=== PATIENT | male | born 1970 | race Caucasian/White ===

== ENCOUNTER 2024-06-25 09:01 | Outpatient (CLI) | payer OTHER, SELFPAY ==
--- NOTE | 2024-06-25 09:15 | MR_ITS ---
[address] [address] Phone:?[phone] Fax:?[phone] Referring Physician Information: Jeronimo Bird M.D. [id number] [facility] [address] Phone:?[phone] Fax:?[phone] Patient:Cong Fernando D.O.B:?1970 Sex:?Male Phone:?[phone] [facility] MRN:?[id number] Exam Date:?06/25/2024 EXAM: MRI EXAMINATION OF THE RIGHT HIP CLINICAL INFORMATION: Male, 53 years old, with right hip pain. INDICATION: Evaluate hip pain. PRIOR SURGERY: None reported. PLAIN FILMS: Hip radiograph dated 01/17/2024. COMPARISONS: No prior MRIs available. TECHNICAL INFORMATION: Using a 1.5T MR scanner and a localizing surface coil: coronals: PD, T2 sagittals: PD, T2 oblique axials: PD straight axials: PDFS coronals: T1, STIR of pelvis and hips SEDATION: None CONTRAST: None FINDINGS: Hip joint: Moderate hip effusion. Moderate chondral thinning of the articular cartilage throughout the superior aspect of the joint (coronal PD series 4 image 16). This includes a focal area of near full-thickness chondral loss. No intra-articular bodies. Labrum: Intrasubstance degeneration and fraying of the anterosuperior labrum. No paralabral cyst. Proximal femur: Moderate marginal osteophytosis. No stress/occult fracture. No convincing femoral cam morphology. Acetabulum: Mild marginal osteophytosis. No stress/occult fracture or periacetabular ossicle. Version: Normal acetabular anteversion. Coverage: Right lateral center edge (CE) angle measures approximately 25? (normal 25?-39?), midline coronal series 4 image 15, corrected for pelvic obliquity. Ligamentum teres: Ligamentum teres is intact and unremarkable. Iliofemoral ligament: The iliofemoral ligament is intact without thickening. Pelvis osseous structures: Sacral ala and sacroiliac joints: No stress/insufficiency fractures or marrow edema/pathology. No demonstrable sacroiliitis. Pubic rami and pubic symphysis: No stress/insufficiency fractures or marrow edema/pathology. Normal alignment without hypertrophy or evidence of ongoing osteitis pubis. Myotendinous structures: Gluteus abductors: No convincing insertional tendinopathy or tear of gluteus minimus or medius. Adductors: No demonstrable tendinopathy or strain/tear. Hamstrings: Mild bilateral common hamstrings tendinopathy, without tear (coronal STIR series 2 images 25-27). Flexors: Intact iliopsoas and rectus femoris, without strain/tear. External rotators: Intact, without demonstrable ischiofemoral impingement. Gluteal aponeurotic fascia and IT band: Unremarkable. Bursae: No demonstrable trochanteric, iliopsoas, or iliopectineal bursitis. Intrapelvic contents: Free fluid: No free fluid seen within the pelvis. Pelvic viscera: No discrete intrapelvic mass is identified. Lymph nodes: No lymphadenopathy by MRI size criteria. Neurovascular structures: No discrete cyst, mass or other compression upon the portions visualized of sciatic or femoral nerves. Lumbar spine: The visualized portions of the lower lumbar spine are unremarkable. IMPRESSION: 1. Moderate osteoarthritis of the right hip joint with a moderate joint effusion. 2. Mild bilateral common hamstrings tendinopathy, without tear. 3. Intrasubstance degeneration and fraying of the anterosuperior labrum. No paralabral cyst. 4. No fracture or osseous stress reaction. 5. No myotendinous abnormality. BC Electronically signed on 06/25/2024 2:47:00 PM by Ramo Johnson M.D.
== END 2024-06-25 09:02 | disposition home or self-care (01) ==
PROVIDERS: Visit Provider Orthopaedic Surgery Sports Medicine
DX: M25.551 Pain in right hip (principal); M16.11 Unilateral primary osteoarthritis, right hip
CPT/HCPCS: 73721

== ENCOUNTER 2024-07-11 10:52 | Outpatient (CLI) | payer OTHER, SELFPAY ==
--- NOTE | 2024-07-11 11:15 | CRLHL7_ITS ---
For Patients: As a result of the Century Cures Act, medical imaging exams and procedure reports are released immediately into your electronic medical record. You may view this report before your referring provider. If you have questions, please contact your health care provider. Indication: Right hip pain Comparison: MRI 06/25/2024 Procedure : Informed consent was obtained. The site was marked. Time-out was performed. The skin of the right hip was cleansed with ChloraPrep. A sterile drape was placed. 8 cc of 1 percent lidocaine was administered for superficial anesthesia. Subsequently a 22 gauge spinal needle was introduced into the right hip joint under intermittent fluoroscopic guidance. Injection of 2 cc nonionic Omnipaque 240 contrast confirmed intra-articular location. Subsequently 7 cc 1 percent lidocaine and 2 cc 40 milligram/cc Depo-Medrol then injected into the right hip joint. The needle was removed and hemostasis achieved with direct pressure. A dressing was placed. The patient tolerated the procedure well without immediate complication. Total fluoroscopy time 14 seconds. Impression: Successful fluoroscopically guided right hip injection with 80 milligrams of Depo-Medrol. No fluid was present within the joint. Dictated by Josh Mullins MD @ 07/11/2024 12:21:10 PM (Electronically Signed)
== END 2024-07-11 10:53 | disposition home or self-care (01) ==
LOC: RAD 10:53
PROVIDERS: Visit Provider Orthopaedic Surgery Sports Medicine
DX: M25.551 Pain in right hip (principal)
CPT/HCPCS: 20610; 77002; Q9966

== ENCOUNTER 2025-01-14 13:21 | Outpatient (CLI) | payer OTHER, SELFPAY | END 2025-01-14 13:22 | disposition home or self-care (01) | PROVIDERS: PCP Family Medicine; Visit Provider Family Medicine | DX: M16.11 Unilateral primary osteoarthritis, right hip (principal); M25.60 Stiffness of unspecified joint, not elsewhere classified; M76.891 Other specified enthesopathies of right lower limb, excluding foot; Z11.59 Encounter for screening for other viral diseases; Z12.5 Encounter for screening for malignant neoplasm of prostate; Z13.6 Encounter for screening for cardiovascular disorders; Z13.1 Encounter for screening for diabetes mellitus | CPT/HCPCS: 80053; 80061; 86140; 86200; 86431; 86803; G0103 ==

== ENCOUNTER 2025-02-04 06:07 | Day surgery (SDC) | payer OTHER, SELFPAY ==
[2025-02-04] VITALS (22 sets, daily range): BP systolic 101–148; BP diastolic 69–98; PULSE 66–82; RESP 16; TEMP 36.2–36.9; O2SAT 95–98; BMI 32.3
[2025-02-04] MEDS: LACTATED RINGERS 1000 ML 1,000 ML 100 ML IV ×3 (06:00→11:06)
[2025-02-04] MEDS: OXYCODONE (CR) 10 MG TAB.ER.12H PO (06:50)
[2025-02-04] MEDS: ACETAMINOPHEN 500 MG TABLET 1000 MG PO (06:50)
[2025-02-04] MEDS: SODIUM CHLORIDE 0.9 % (FLUSH) 10 ML SYRINGE IVF (06:50)
--- NOTE | 2025-02-04 07:05 | W.PM.H&PU ---
History & Physical Update History & Physical Update H&P Reviewed and patient assessed: No changes noted
--- NOTE | 2025-02-04 07:30 | CRLHL7_ITS ---
For Patients: As a result of the Cures Act, medical imaging exams and procedure reports are released immediately into your electronic medical record. You may view this report before your referring provider. If you have questions, please contact your health care provider. Indication: Right total hip arthroplasty Technique/Findings: Single spot intraoperative image of the hip submitted. 45.7 seconds fluoro time. Dictated by Robbie Oshea MD @ 02/05/2025 1:46:40 PM (Electronically Signed)
[2025-02-04] MEDS: fentaNYL 100 MCG/2 ML inj IVP (07:44)
[2025-02-04] MEDS: MIDAZOLAM HCL 1 MG/ML inj IVP (07:44)
--- NOTE | 2025-02-04 07:52 | SUR.PREOP ---
TIME?OUT:?0744 PT/RN/MDA?VERIFICATION?OF?SURGICAL?SITE,?PROCEDURE,?AND?CONSENT OBTAINED?PRIOR?TO?INVASIVE?PROCEDURE.
[2025-02-04] MEDS: TRANEXAMIC ACID 100 MG/ML INJ 1000 MG IV (08:45)
[2025-02-04] MEDS: CEFAZOLIN 2 GM in 0.9 % SODIUM CHLORIDE Mini-bag 100 ML IVPB (08:45)
--- NOTE | 2025-02-04 10:08 | PM.ORPRC ---
Procedure Note Date of procedure: 02/04/25 Procedure: PREOPERATIVE DIAGNOSIS: 1. Right hip osteoarthritis, severe, primary POSTOPERATIVE DIAGNOSIS: 1. Right hip osteoarthritis, severe, primary PROCEDURE: 1. Right total hip arthroplasty-anterior approach 2. Intraoperative fluoroscopy greater than 1 hour. C-arm fluoroscopy operated by Jeronimo Bird M.D. for intraoperative fracture reduction and percutaneous K-wire insertion evaluation. 1 C-arm spot image was saved/sent to PACS. Fluoroscopy time was 45.6 seconds with total dose of 9.30 mGy. SURGEON: Jeronimo Bird MD. TALENT SOURCING SPECIALIST: Elijah Shaw PA-C; CRISTO Carrillo - Of note, a skilled assistant printer floor covering was critical for this case to aid in patient positioning, tissue retraction, limb manipulation/positioning, and closure. ANESTHESIA: General endotracheal anesthetic EBL: 600 mL IMPLANTS: DePuy J&J uncemented total hip Kathleen cup size 54, hole eliminator, +4 neutral liner Actis stem, high offset, size 5 +5 mm ceramic 36 mm head COMPLICATIONS: None evident INDICATIONS: The patient is a pleasant 54-year-old male who has experienced severe right hip pain and difficulty bearing weight. Workup included x-rays which revealed severe osteoarthrosis in the hip. Given the deformity, the dysfunction, and the pain, as well as the failure of nonoperative management, recommendation was made for surgery. FINDINGS: Full-thickness chondral loss diffusely throughout the femoral head and acetabulum. Osteophytes around the femoral head/neck junction and perimeter of the acetabulum. Large effusion upon entering the joint. Generalized synovitis seen within the hip capsule. DESCRIPTION OF PROCEDURE: Following a thorough discussion of risks, benefits, and alternatives consent was obtained and the right hip was marked. The patient was brought to the operating room and placed supine on the operating table. Induction of anesthesia was undertaken. 2 g IV Ancef and 1 g tranexamic acid was administered within 1 hr of incision preoperatively. Proper time-out was performed identifying proper patient, site, procedure. The operative extremity was prepped and draped in the appropriate sterile fashion using ChloraPrep after the patient was positioned on the [place] table with head in neutral alignment and all bony prominences well padded. C-arm fluoroscopic imaging was utilized to confirm proper pelvis rotation and position, and to get true AP films of both the contralateral left, and the affected right hip. This is for comparison. A longitudinal incision was made starting approximately 1 cm distal to the ASIS, and 3-4 cm lateral. The incision was extended distally aiming toward the lateral border the patella. Sharp incision through skin and bovie cautery through the subcutaneous tissue allowed identification of the TFL fascia. This was sharply divided, and the fascia bluntly released from the muscle fibers as we dissected medial. Upon coming to the medial border, we were able to retract the TFL laterally, and penetrated the deeper fascia and identify the crossing circumflex vessels. These were ligated/cauterized. The rectus was elevated from the capsule, and retractors placed laterally and medially along the femoral neck to help with visualization of the capsule. We then performed an inverted T capsulotomy. The capsule was tagged for later repair. Retractors were placed inside the capsule. The femoral neck was visualized after releasing medially down to the lesser trochanter, along the saddle laterally, and up onto the acetabulum. The femoral neck cut was made in line with our preoperative templating. The head was removed in a single piece, and sized. We turned our attention to acetabular preparation. Initially, the labrum was resected from around the perimeter, the pulvinar was excised, allowing us to visualize the false wall. We started the reaming with a 43 mm reamer. This was medialized down to the true wall. We then enlarged our reamers sequentially up to one size less than the selected cup size. We trialed at the same size and found it to have an excellent fit. The selected cup was then opened, inserted, and impacted in line with the goal of 40? of abduction, and 20-25? of anteversion. This was confirmed on C-arm fluoroscopic imaging to be in the appropriate/goal position. Once the cup was placed we placed a hole eliminator and a liner consistent with preop planning. Attention was turned to the femoral preparation. The limb was extended, externally rotated, and adducted. The posteromedial capsule was released, as retractors were placed allowing excellent access to the proximal femur. Initially a picker box operator was followed by canal finder followed by various broaches. We broached sequentially up to the size noted above, found it to have excellent rotational control, and trialing various heads and necks, revealed that appropriate neck offset, and the above noted head size provided the greatest stability, and yazidi of length, and offset. C-arm fluoroscopic imaging confirmed position of the stem, as well as leg lengths, which were compared with the pre procedure all fluoroscopic images. Trial implants were removed, the real femoral stem inserted, as was the appropriate head. After reducing, the leg was placed through range of motion and stability was confirmed anterior, posterior, and lateral. A 3 min Betadine soak was then performed, and thorough irrigation with normal saline followed. Closure of the capsule was performed with #1 PDS. Bleeding was confirmed to be controlled at this stage, and the TFL fascia was closed with #0 strata fix. Subcutaneous, and subcuticular closure was performed with 2-0 Vicryl and 4-0 Monocryl, respectively. Dressings were applied, and the patient was awoken from anesthesia and transferred the PACU in stable condition. A skilled assistant printer floor covering was critical for this case to aid in patient positioning, tissue retraction, acetabular and proximal femoral exposure, limb manipulation/positioning, dislocation/relocation, patient safety, and closure. PLAN: 1. Weight bear as tolerated operative extremity. 2. 23 hr perioperative antibiotics. 3. Ice. 4. PT/OT consults for ambulation assistance/mobility education. 5. Social work consult for discharge planning. 6. DVT prophylaxis with at SCDs and Xarelto x5 days followed by aspirin for a total of 1 month..
--- NOTE | 2025-02-04 10:50 | CRLHL7_ITS ---
For Patients: As a result of the Cures Act, medical imaging exams and procedure reports are released immediately into your electronic medical record. You may view this report before your referring provider. If you have questions, please contact your health care provider. Indication: Total hip replacement Technique: AP pelvis and lateral right hip Findings: New right NERIS. Components appear well seated. Dictated by Robbie Oshea MD @ 02/05/2025 1:21:58 PM (Electronically Signed)
--- NOTE | 2025-02-04 10:52 | P.ANES_ITS ---
Anesthesia Charges Start Date/Time Anesthesia Start Date: 02/04/25 Anesthesia Start Time: 08:24 Stop Date/Time Anesthesia Stop Date: 02/04/25 Anesthesia Stop Time: 10:45 Coding CPT Codes CPT Codes: ANESTH HIP ARTHROPLASTY - 21809 ([id number]) P2 - PATIENT W/MILD SYST DISEASE, QK - BAND STRAIGHTENER 2-4 CNCRNT ANES PROC, QX - MATHEMATICS PROFESSOR SVC W/ MD MED DIRECTION
--- NOTE | 2025-02-04 10:52 | W.ANESCHARGE ---
Anesthesia Charges Start Date/Time Anesthesia Start Date: 02/04/25 Anesthesia Start Time: 08:24 Stop Date/Time Anesthesia Stop Date: 02/04/25 Anesthesia Stop Time: 10:45 Coding CPT Codes CPT Codes: ANESTH HIP ARTHROPLASTY - 96275 ([id number]) P2 - PATIENT W/MILD SYST DISEASE, QK - SPRING CLIPPER 2-4 CNCRNT ANES PROC, QX - ORNAMENTAL IRON WORKER HELPER SVC W/ MD MED DIRECTION
[2025-02-04] MEDS: fentaNYL 100 MCG/2 ML inj 50 MCG IVP ×2 (11:00→11:09)
[2025-02-04] MEDS: HYDROmorphone 0.5 mg/0.5 ml inj IVP ×2 (11:25→11:59)
--- NOTE | 2025-02-04 11:28 | P.ANES_ITS ---
Anesthesia Charges Start Date/Time Anesthesia Start Date: 02/04/25 Anesthesia Start Time: 08:24 Stop Date/Time Anesthesia Stop Date: 02/04/25 Anesthesia Stop Time: 10:45 Coding CPT Codes CPT Codes: ANESTH HIP ARTHROPLASTY - 35009 ([id number]) QK - MANGLE ROLLER 2-4 CNCRNT ANES PROC, QX - LIFE SCIENTIST SVC W/ MD MED DIRECTION, P2 - PATIENT W/MILD SYST DISEASE
--- NOTE | 2025-02-04 11:28 | W.ANESCHARGE ---
Anesthesia Charges Start Date/Time Anesthesia Start Date: 02/04/25 Anesthesia Start Time: 08:24 Stop Date/Time Anesthesia Stop Date: 02/04/25 Anesthesia Stop Time: 10:45 Coding CPT Codes CPT Codes: ANESTH HIP ARTHROPLASTY - 44824 ([id number]) QK - LIME TRIMMER 2-4 CNCRNT ANES PROC, QX - DRAMA PROFESSOR SVC W/ MD MED DIRECTION, P2 - PATIENT W/MILD SYST DISEASE
--- NOTE | 2025-02-04 11:29 | P.NB_ITS ---
Nerve Block Nerve Block Time Seen by Provider: 07:48 Date Seen: 02/04/25 Type of block requested by surgeon for post-operative analgesia: MATTIE/LFCN Side: right Time out performed: Yes Verification of patient name: Yes Verification of date of : Yes Site marking: site marked Name of person performing procedure: Hitesh Continuous monitoring Was continuous monitoring of O2 sat, B/P, manual machinist, recorded every 15 minutes?: Yes Procedure Checklist: sterile prep, needles and gloves Ultrasound guided. Images saved: Yes Medications given in 5ml increments after negative aspiration: Ropivicaine %: 0.5 mL: 30 Needle gauge: 20 Precedex (mcg): 25 Patient tolerated procedure well: Yes Additional comments: Needle noted below psoas tendon needle noted adjacent to LFCN Block Charges Block Charge (with Pro Fee): Other Periph Nerve Block Use of Ultrasound Machine for Block: Yes- US Guidance/pain block
[2025-02-04] MEDS: hydrOXYzine pamoate 25 MG CAPSULE PO (11:58)
[2025-02-04] MEDS: ACETAMINOPHEN 325 MG TABLET PO (12:11)
[2025-02-04] MEDS: IBUPROFEN 200 MG TABLET 400 MG PO (13:00)
[2025-02-04] MEDS: METOCLOPRAMIDE HCL 5 MG/ML INJ 10 MG IVP (14:40)
--- NOTE | 2025-02-04 15:13 | SUR.PHASEII ---
Pt has had intermittent bouts of nausea and struggled to begin therapy. has now completed OT. headed to PT.
--- NOTE | 2025-02-04 15:52 | SUR.PHASEII ---
Pt did well with PT and was ok'd to be discharged home. Dr. Bird aware and approved discharge home
== END 2025-02-04 15:56 | disposition home or self-care (01) ==
LOC: OR 06:07
PROVIDERS: PCP Family Medicine; Visit Provider Orthopaedic Surgery Sports Medicine
PROC: (CPT 27130; principal; 2025-02-04 07:30)
DX: M16.11 Unilateral primary osteoarthritis, right hip (principal); G89.18 Other acute postprocedural pain
CPT/HCPCS: 27130; 01214; 36415; 64450; 73501; 76000; 76942; 86850; 86900; 86901; 97110; 97116; 97161; 97165; A9270; C1776; J0330; J0690; J1100; J1171; J2250; J2371; J2405; J2704; J2765; J2795; J3010; J3490; J7120

== ENCOUNTER 2025-03-12 15:45 | Outpatient (RCR) | payer OTHER, SELFPAY ==
--- NOTE | 2025-02-13 10:59 | PT.OPEX ---
PT [place] Outpatient Eval PT [facility] Outpatient Eval Start: 02/12/25 16:41 Freq: Status: Active Protocol: Document 02/13/25 07:20 HLA (Rec: 02/13/25 10:55 HLA [id number]) E-signed By Carolyn Gamez PT, DPT Physical Therapy Outpatient Evaluation Insurance Information Recert Due Date 05/13/25 Insurance Name Other; See Comments Insurance Information/Comments [facility] Insur Medical Diagnosis R ant NERIS Treating Diagnosis weakness, stiffness, difficulty amb Referring MD Bird Subjective Preferred Name Nicola Subjective Pain, stiffness mainly R hip after surgery, using his cane, doing his ex. Sleeping ok, some waking up. Using ice. Happy he had the surgery. 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 Worked on progressing gt, wean off of walker. Mildly antalgic R hip with amb no device. Stairs step to pattern with railing + cane Posture good Sensation/Reflexes intact to light touch Functional Test Performed & Score LEFS 26/80 Assessment Assessment/Impression 54 year old male with hx of OA B hips and L shldr adhesive capsulitis underwent L ant NERIS with Dr. Bird 02/04/25. Pt returned to his multi-level home, 2 step entry (no rail) with spouse's support. He arrives today using his cane. Has been doing his ex, takes oxy 1x/day otherwise Tylenol. Pt with stiffness R hip, 0-95 flex, abd 0-30, ER 0-45, IR 0- 20. Knee full. Strength 3+/5 R hip. Reviewed pt's ex and updated his home program including standing ex and stretches. Pt instructed in wean off of cane to no device, pain as his guide. Stairs instructed, ice, activity level. Pt presents with weakness, impaired balance, impaired ambulation post R ant NERIS and will benefit from weekly PT for strengthening, ROM, balance training, gt training, safety, fall prevention and home ex program instruction with goal to return to community-based mobility at low fall risk. Primary Functional Limitations impaired ROM impaired strength impaired gait impaired mobility+- Plan of Care Rehabilitation Potential Excellent Physical Therapy Goals Within 4-6 weeks 1. Pt will amb level surfaces 20 min without an assistive device and no evidence of limp . 2. Pt will ascend/descend 13 stairs with railing reciprocally, safely and independently for household and community mobility. 3. Pt will demonstrate normal strength of surgical hip to prevent substitution of movement, prevent falls with mobility. 4. Pt will be independent in home ex program to promote strength and mobility and to prevent falls. Coordination/Communication With Referral Source Treatment Plan/Direct Interventions Compression Garments,Dry Needling,Electrical Stimulation,Gait Training,Heat ,Ice/Cold/Vasopneumatic,Manual Therapy,Neuromuscular Re-ed, Orthotics/Braces,Self-Care/ Home Management,Therapeutic Activities,Therapeutic Exercises Frequency/Duration 1x/week x 4-6 weeks Patient Will Be Discharged From Therapy Completion of LTG(s), Independent w/HEP Evaluation Billing Untimed Code Treatment Minutes 15 PT Eval No Charge No Complexity Low Certification Information Initial Certification Date 02/13/25 Ending Certification Date 05/13/25 Provider Signature Required Yes Provider Signature Shows Agreement With POC & Medical Necessity Physician NPI Number Write NPI# Here Physician Comment/Change : Physician Signature & Date Requested Please Sign/Date Here
== END 2025-07-10 23:59 | disposition home or self-care (01) ==
PROVIDERS: PCP Family Medicine; Visit Provider Orthopaedic Surgery Sports Medicine
DX: Z47.1 Aftercare following joint replacement surgery (principal); M16.11 Unilateral primary osteoarthritis, right hip; Z96.641 Presence of right artificial hip joint; Z51.89 Encounter for other specified aftercare
CPT/HCPCS: 97110; 97112; 97140; 97161